=== PATIENT | female | born 1935 | race Caucasian/White ===

== ENCOUNTER 2018-04-04 14:09 | Day surgery (SDC) | payer BC ==
[2018-04-04] MEDS ORDERED: TRIAMCINOLONE ACETONIDE 200 MG/5 ML MDV IM ONE (15:02)
[2018-04-04] MEDS ORDERED: LIDOCAINE 1% 300 MG/30 ML SDV ONE (15:23)
[2018-04-04] MEDS ORDERED: IOPAMIDOL (ISOVUE-M 300) 15 ML VIAL ONE (15:23)
== END 2018-04-04 16:40 | disposition home or self-care (01) ==
LOC: FIMAGING 14:09
PROVIDERS: ATTEND Physical Medicine & Rehabilitation
PROC: 3E0R33Z Introduction of Anti-inflammatory into Spinal Canal, Percutaneous Approach (ICD-10-PCS; principal; 2018-04-04)
DX: M48.061 Spinal stenosis, lumbar region without neurogenic claudication (principal); M99.73 Connective tissue and disc stenosis of intervertebral foramina of lumbar region
CPT/HCPCS: J3301; Q9967

== ENCOUNTER 2018-04-18 19:52 | Inpatient (IN) | payer OTHER, BC ==
[2018-04-18 20:27] LABS: PLATELET COUNT 236 10^3/uL (150-400)
[2018-04-18] MEDS ORDERED: NS 500 ML IV ONE (20:31)
[2018-04-18 20:53] LABS: INR 1.09 (0.83-1.16); PROTIME(PATIENT) 14.3 SEC (12.0-15.0)
--- NOTE | 2018-04-18 21:47 | EDPHY ---
H & P Time Seen by Provider: 04/18/18 20:33 HPI/ROS: HPI Frequent falls. Word-finding difficulty. 82-year-old female by private vehicle with her . Her reports that the patient was asking him questions at 4:00 p.m. this evening and had sudden onset word finding difficulty. He also reports that she has had at least 4 falls over the last month. She reports that she still seems somewhat confused but her expressive aphasia has improved and she in his words she is close to baseline in terms of speech and cognition. She denies headache. No neck pain. She denies loss of sensation or weakness in her extremities. Her reports that she has a couple of cocktails and night to help her sleep. Her does report that she has not been drinking prior to her onset of word-finding difficulty. ROS: Constitutional: No fever, no chills. As above. Eyes: No discharge. No changes in vision. ENT: No sore throat. No nasal congestion or rhinorrhea. Respiratory: No cough. No shortness of breath. Cardiac: No chest pain, no palpitations. Gastrointestinal: No abdominal pain, no vomiting, no diarrhea. Genitourinary: No hematuria. No dysuria or increased frequency with urination. Musculoskeletal: No back pain. No neck pain. No myalgias or arthralgias. Skin: No rashes. Neurological: No headache. No focal weakness or altered sensation. Past medical history: Atherosclerotic disease, coronary artery disease, multiple stents, pulmonary hypertension, ulcerative colitis. Social history: Nonsmoker. Lives with her private residence. As 2-3 cocktails per day. Physical Exam: General Appearance: Alert, no distress. This patient is responding to questions appropriately and in full sentences. This patient appears well- hydrated and well-nourished. Head: Normocephalic atraumatic. Face: Facial bones are stable on palpation. Eyes: Pupils equal and round and reactive to light, no pallor or injection. No lid erythema or edema. ENT, Mouth: Mucous membranes moist. Dentition is intact. No malocclusion of the jaw. No tongue lacerations or abrasions. Pharynx is clear. The bilateral nasal canals are clear. No septal hematoma. Respiratory: There are no retractions, lungs are clear to auscultation with good air movement bilaterally. Chest wall is stable to AP and lateral palpation. Cardiovascular: Regular rate and rhythm. No murmur. Gastrointestinal: Abdomen is soft and nontender, no masses, bowel sounds normal. Neurological: Motor sensory function is intact. Cranial nerves are normal. Cerebellar function intact. Skin: Warm and dry, no rashes. Patchy ecchymosis over the right dorsal forearm with a skin tear which has Tegaderm over it right lateral distal arm. Musculoskeletal: Neck is supple and nontender. No pain on flexion of her neck. The trachea is midline. No midline cervical, thoracic, lumbar or sacral tenderness on palpation. No flank tenderness on palpation. Extremities are symmetrical, full range of motion. All joints in the bilateral upper and bilateral lower extremities range without pain or impingement. No tenderness on palpation of the long bones in the bilateral upper and bilateral lower extremities. No pain on axial compression of her joints in her bilateral upper and bilateral lower extremities. Psychiatric: No agitation. No depression. Database: EKG: EKG time is 9:55 p.m.; EKG shows a narrow complex normal sinus rhythm with a ventricular rate of 74. Probable left atrial enlargement. The NE, QRS, QT intervals are within normal limits. T-wave inversion noted in lead V2. There are otherwise no ST-T wave changes indicative of ischemic or injury pattern. No evidence of right heart strain. Interpreted by me. Imaging: CT head without contrast: Negative. Results were discussed with staff radiologist Dr. Faheem Hammond. MRI brain without contrast: Carotid artery Doppler ultrasounds: Procedures: Emergency department course: Triage vital signs reviewed. Patient borderline febrile at 37.8. Vital signs are otherwise normal. Patient sent for noncontrast CT of head shortly after my evaluation. 10:00 p.m., patient re-evaluated. Repeat neurologic Assessment is nonfocal and unchanged from above. MRI brain without contrast and carotid artery Dopplers pending. Plan for admission to the hospitalist service and Neurology consultation in the morning discussed with the patient and her . They are in agreement. Hospitalist paged. 10:05 p.m., spoke with [facility]. Case discussed with them. They agree with above imaging and management plan. 10:15 p.m., patient taken for MRI and Doppler ultrasounds pending. Repeat neurologic Assessment again unchanged from above. Spoke with on-call hospitalist, Dr. Centeno. Case discussed in detail. The patient has a leukocytosis and is borderline febrile as well. Urinalysis has been ordered but not obtained. I feel that meningitis, encephalitis or unlikely. Results of MRI, urinalysis and ultrasound will be followed up on by the hospitalist service. Hospitalist service will consult with Neurology in the morning regarding this patient. The patient's remaining emergency department course under my care has been uneventful. She was admitted in stable condition to the hospitalist service. Differential Diagnosis: The differential diagnosis on this patient includes but is not limited to TIA, alcohol intoxication, dementia, urinary tract infection. Meningitis, encephalitis unlikely. This represents a partial list of diagnoses considered. These considerations are based on history, physical exam, past history, reassessment and diagnostic testing. Smoking Status: Never smoked Constitutional: Initial Vital Signs Temperature (C) 37.8 C 04/18/18 19:56 Heart Rate 90 04/18/18 19:56 Respiratory Rate 18 04/18/18 19:56 Blood Pressure 120/64 04/18/18 19:56 O2 Sat (%) 98 04/18/18 19:56 O2 Delivery Mode Nasal Cannula O2 (L/minute) 2 Allergies/Adverse Reactions: tapentadol HCl [From Nucynta] Allergy (Intermediate, Verified 04/18/18 19:58) hallucinations dicloxacillin Allergy (Unknown, Verified 04/18/18 19:58) Unknown nitrofurantoin macrocrystalline [From Macrodantin] Allergy (Unknown, Verified 19:58) Penicillins Allergy (Unknown, Verified 04/18/18 19:58) Sulfa (Sulfonamide Antibiotics) Allergy (Unknown, Verified 04/18/18 19:58) tetracycline [Tetracycline] Allergy (Unknown, Verified 04/18/18 19:58) abi inhibitors Allergy (Unknown, Uncoded 04/18/18 19:58) sinobac Allergy (Unknown, Uncoded 04/18/18 19:58) Home Medications: Medication Instructions Recorded DULoxetine [Cymbalta 60 MG (RX)] 60 mg PO DAILY 11/25/11 FLUoxetine [Prozac 20 MG (RX)] 20 mg PO DAILY 11/25/11 Losartan Potassium 100 mg PO DAILY 11/25/11 clonIDINE [Catapres (RX)] 0.1 mg PO DAILY 11/25/11 traZODone [traZODONE (RX)] 100 mg PO HS 11/28/11 Furosemide [Lasix 20 MG (*)] 20 mg PO BID 04/01/18 Albuterol [Proventil Inhaler HFA 1 - 2 puffs IH DAILY PRN 04/19/18 (*)] Albuterol [Proventil Neb] 3 ml IH Q6HRS PRN 04/19/18 Cholecalciferol Vit D3 [Vitamin D3 1,000 units PO DAILY 04/19/18 (*)] Diclofenac Sodium 1% [Voltaren Gel 1 margo TP DAILY PRN 04/19/18 (*)] Fluticasone/Vilanterol [Breo 1 each IH DAILY 04/19/18 Ellipta 100-25 Mcg INH] Herbals/Supplements -Info Only 1 ea PO DAILY 04/19/18 Levothyroxine [Synthroid 88 mcg 88 mcg PO DAILY06 04/19/18 (*)] Montelukast Sodium [Singulair 10 10 mg PO DAILY@1800 04/19/18 mg (*)] Naproxen [Naprosyn] 250 mg PO DAILY PRN 04/19/18 Nebivolol HCl [Bystolic] 20 mg PO DAILY 04/19/18 Ranolazine [RANEXA 500mg (RX)] 500 mg PO BID 04/19/18 clonIDINE [Catapres (*)] 0.2 mg PO HS 04/19/18 hydrALAZINE [Apresoline 50 mg (*)] 50 mg PO BID 04/19/18 Medical Decision Making - Data Points Laboratory Results: Laboratory Results 04/19/18 05:10 04/19/18 05:10 Microbiology Results: MICROBIOLOGY 04/18/18 22:15 Urine,Clean Catch Urine Culture - Preliminary Escherichia Coli Escherichia Coli#2 Medications Given: Cholecalciferol (Vitamin D) 1,000 units PO DAILY [facility] Stop: 10/17/18 08:59 Last Admin: 04/20/18 09:32 Dose: 1,000 units Clonidine (Catapres) 0.1 mg PO DAILY [facility] Stop: 10/17/18 08:59 Last Admin: 04/20/18 09:33 Dose: 0.1 mg Clonidine (Catapres) 0.1 mg PO HS [facility] Stop: 10/16/18 20:59 Last Admin: 04/20/18 20:01 Dose: 0.1 mg Duloxetine HCl (Cymbalta) 60 mg PO DAILY [facility] Stop: 10/16/18 13:44 Last Admin: 04/20/18 09:32 Dose: 60 mg Fluoxetine HCl (Prozac) 20 mg PO DAILY [facility] Stop: 10/16/18 13:44 Last Admin: 04/20/18 09:32 Dose: 20 mg Ceftriaxone Sodium/Dextrose (Rocephin 1 Gm (Premix)) 50 mls @ 100 mls/hr IV HS FELIPE PRN Reason: Protocol Stop: 05/18/18 23:29 Last Admin: 04/20/18 20:01 Dose: 50 mls Levothyroxine Sodium (Synthroid) 88 mcg PO DAILY06 [facility] Stop: 10/16/18 13:44 Last Admin: 04/20/18 06:03 Dose: 88 mcg Melatonin (Melatonin) 3 mg PO HS [facility] Stop: 10/16/18 20:59 Last Admin: 04/20/18 20:01 Dose: 3 mg Montelukast Sodium (Singulair) 10 mg PO DAILY@1800 [facility] Stop: 10/16/18 17:59 Last Admin: 04/20/18 18:13 Dose: 10 mg Ranolazine (Ranexa) 500 mg PO BID [facility] Stop: 10/16/18 20:59 Last Admin: 04/20/18 20:01 Dose: 500 mg Temazepam (Restoril) 15 mg PO HS PRN PRN Reason: Sleep/Insomnia Stop: 10/16/18 14:17 Last Admin: 04/20/18 20:00 Dose: 15 mg Discontinued Medications Clonidine (Catapres) 0.2 mg PO HS FELIPE Stop: 10/16/18 20:59 Last Admin: 04/19/18 20:15 Dose: 0.2 mg Sodium Chloride (Ns) 500 mls @ 0 mls/hr IV ONCE ONE; Wide Open PRN Reason: Protocol Stop: 04/18/18 20:32 Last Admin: 04/18/18 20:47 Dose: 500 mls Ceftriaxone Sodium/Dextrose (Rocephin 1 Gm (Premix)) 50 mls @ 100 mls/hr IV DAILY [facility]ELIPE PRN Reason: Protocol Stop: 05/18/18 23:29 Last Admin: 04/19/18 10:36 Dose: Not Given Losartan Potassium (Cozaar) 100 mg PO DAILY [facility]EL[facility] Stop: 10/17/18 08:59 Last Admin: 04/20/18 09:32 Dose: 100 mg Nebivolol (Bystolic) 20 mg PO DAILY [facility]ELIPE Stop: 10/17/18 08:59 Last Admin: 04/20/18 09:32 Dose: 20 mg Trazodone HCl (Trazodone) 50 - 100 mg PO HS PRN PRN Reason: Sleep/Insomnia Stop: 10/16/18 00:48 Last Admin: 04/19/18 01:20 Dose: 100 mg Point of Care Test Results: Chemistry 04/18/18 20:14 POC Troponin I 0.00 ng/mL ng/mL (0.00-0.08) Departure - Departure Disposition: [facility] Acute Clinical Impression: Frequent falls, Leukocytosis, Expressive aphasia, Transient expressive aphasia
--- NOTE | 2018-04-18 22:11 | CPEKG ---
Test Reason : OPEN Blood Pressure : / mmHG Vent. Rate : 074 BPM Atrial Rate : 074 BPM P-R Int : 140 ms QRS Dur : 081 ms QT Int : 424 ms P-R-T Axes : 068 025 065 degrees QTc Int : 471 ms Sinus rhythm Probable left atrial enlargement Nonspecific T abnrm, anterolateral leads Confirmed by Gerry Dobson ([id number]) on 04/18/2018 10:10:37 PM Referred By: Confirmed By:Gerry Dobson
[2018-04-18] MEDS ORDERED: ACETAMINOPHEN 325 MG TAB PO PRN (23:01)
[2018-04-18] MEDS ORDERED: ONDANSETRON DISINTEGRATING 4 MG TAB PO PRN (23:01)
[2018-04-18] MEDS ORDERED: ONDANSETRON 4 MG/2 ML VIAL IVP PRN (23:01)
[2018-04-18] MEDS ORDERED: cefTRIAXone 1 GM/DEXTROSE 1 GM/50 ML BAG IV ONE (23:20)
--- NOTE | 2018-04-18 23:35 | CPEKG ---
Test Reason : OPEN Blood Pressure : / mmHG Vent. Rate : 080 BPM Atrial Rate : 080 BPM P-R Int : 138 ms QRS Dur : 075 ms QT Int : 391 ms P-R-T Axes : 055 016 067 degrees QTc Int : 451 ms Sinus rhythm Confirmed by Parker Poon ([id number]) on 04/18/2018 11:34:59 PM Referred By: Confirmed By:Parker Poon
[2018-04-19] MEDS ORDERED: traZODone 50 MG TAB PO PRN (00:49)
--- NOTE | 2018-04-19 02:00 | PDGENHP ---
History and Physical - Chief Complaint Word finding difficulty - History of Present Illness 82 yo F w/ hx of HTN, CAD, and pHTN presents with word finding difficulty. The patient was brought in by her since she has been displaying mild confusion and word finding difficulty over the last 2 days. The patient denies numbness, weakness, or other neurologic symptoms. As a result of her word finding difficulty a TIA work-up was started and she is being admitted for the completion of this. Her NIHSS is 0 at the time of my evaluation. Upon further discussion, she tells me she has also been experiencing foul smelling urine and urinary frequency. She has had several falls lately but denies LOC or serious injury. Her BAL was 41 on admission. Case discussed with ED physician Dr. Poon; records reviewed in EMR. History Information - Allergies/Home Medication List Allergies/Adverse Reactions: tapentadol HCl [From Nucynta] Allergy (Intermediate, Verified 04/18/18 19:58) hallucinations dicloxacillin Allergy (Unknown, Verified 04/18/18 19:58) Unknown nitrofurantoin macrocrystalline [From Macrodantin] Allergy (Unknown, Verified 19:58) Penicillins Allergy (Unknown, Verified 04/18/18 19:58) Sulfa (Sulfonamide Antibiotics) Allergy (Unknown, Verified 04/18/18 19:58) tetracycline [Tetracycline] Allergy (Unknown, Verified 04/18/18 19:58) abi inhibitors Allergy (Unknown, Uncoded 04/18/18 19:58) sinobac Allergy (Unknown, Uncoded 04/18/18 19:58) Home Medications: DULoxetine [Cymbalta 60 MG (RX)] 60 mg PO DAILY 11/25/11 [Last Taken 11/28/11] FLUoxetine [Prozac 20 MG (RX)] 20 mg PO DAILY 11/25/11 [Last Taken 11/28/11] Levothyroxine [Synthroid 112 mcg (RX)] 112 mcg PO DAILY 11/25/11 [Last Taken 29/07] Losartan Potassium 100 mg PO DAILY 11/25/11 [Last Taken 11/28/11] clonIDINE [Catapres (RX)] 0.1 mg PO BID 11/25/11 [Last Taken 11/28/11] Aspirin EC [Aspirin EC (OTC)] 81 mg PO DAILY 11/28/11 [Last Taken 11/28/11] Simvastatin [Zocor 10 mg (RX)] 10 mg PO BID 11/28/11 [Last Taken 11/28/11 08:00] traZODone [traZODONE (RX)] 100 mg PO HS 11/28/11 [Last Taken 11/27/11] BIOTIN 04/01/18 [Last Taken Unknown] Furosemide 04/01/18 [Last Taken Unknown] I have personally reviewed and updated: family history, medical history - Past Medical History coronary artery disease, hypertension Additional medical history: Pulmonary hypertension - Surgical History Reports: coronary stent - Family History Additional family history: Asked, denies - Social History Smoking Status: Never smoked Review of Systems Review of Systems: ROS: 10pt was reviewed & negative except for what was stated in HPI & below Physical Exam Physical Exam: Temp Pulse Resp BP Pulse Ox 37.4 C 70 18 139/58 H 96 04/19/18 00:01 04/19/18 00:01 04/19/18 00:01 04/19/18 00:01 04/19/18 00:01 O2 (L/minute) 2 Constitutional: no apparent distress, not in pain Eyes: PERRL, EOMI Ears, Nose, Mouth, Throat: moist mucous membranes, no oral mucosal ulcers Cardiovascular: regular rate and rhythym, systolic murmur Respiratory: no respiratory distress, clear to auscultation Gastrointestinal: normoactive bowel sounds, soft, non-tender abdomen Skin: warm, normal color Musculoskeletal: full muscle strength, no muscle tenderness Neurologic: AAOx3, sensation intact bilaterally, CN II-XII Intact, No weakness, No numbness, No facial droop Psychiatric: interacting appropriately, not anxious Lab Data & Imaging Review 04/18/18 20:10 04/18/18 20:10 WBC 23.01 10^3/uL (3.80-9.50) H 04/18/18 20:10 RBC 3.71 10^6/uL (4.18-5.33) L 04/18/18 20:10 Hgb 11.8 g/dL (12.6-16.3) L 04/18/18 20:10 Hct 35.4 % (38.0-47.0) L 04/18/18 20:10 MCV 95.4 fL (81.5-99.8) 04/18/18 20:10 MCH 31.8 pg (27.9-34.1) 04/18/18 20:10 MCHC 33.3 g/dL (32.4-36.7) 04/18/18 20:10 RDW 13.3 % (11.5-15.2) 04/18/18 20:10 Plt Count 236 10^3/uL (150-400) 04/18/18 20:10 MPV 9.4 fL (8.7-11.7) 04/18/18 20:10 Neut % (Auto) 81.9 % (39.3-74.2) H 04/18/18 20:10 Lymph % (Auto) 6.1 % (15.0-45.0) L 04/18/18 20:10 [place] % (Auto) 10.8 % (4.5-13.0) 04/18/18 20:10 Eos % (Auto) 0.1 % (0.6-7.6) L 04/18/18 20:10 Baso % (Auto) 0.2 % (0.3-1.7) L 04/18/18 20:10 Nucleat RBC Rel Count 0.0 % (0.0-0.2) 04/18/18 20:10 Absolute Neuts (auto) 18.85 10^3/uL (1.70-6.50) H 04/18/18 20:10 Absolute Lymphs (auto) 1.40 10^3/uL (1.00-3.00) 04/18/18 20:10 Absolute Monos (auto) 2.49 10^3/uL (0.30-0.80) H 04/18/18 20:10 Absolute Eos (auto) 0.02 10^3/uL (0.03-0.40) L 04/18/18 20:10 Absolute Basos (auto) 0.05 10^3/uL (0.02-0.10) 04/18/18 20:10 Absolute Nucleated RBC 0.00 10^3/uL (0-0.01) 04/18/18 20:10 Immature Gran % 0.9 % (0.0-1.1) 04/18/18 20:10 Immature Gran # 0.21 10^3/uL (0.00-0.10) H 04/18/18 20:10 RBC/WBC/PLT Morphology TNP 04/18/18 20:10 Platelet Estimate TNP 04/18/18 20:10 PT 14.3 SEC (12.0-15.0) 04/18/18 20:10 INR 1.09 (0.83-1.16) 04/18/18 20:10 APTT 33.5 SEC (23.0-38.0) 04/18/18 20:10 Sodium 130 mEq/L (135-145) L 04/18/18 20:10 Potassium 4.2 mEq/L (3.3-5.0) 04/18/18 20:10 Chloride 98 mEq/L (97-110) 04/18/18 20:10 Carbon Dioxide 23 mEq/l (22-31) 04/18/18 20:10 Anion Gap 9 mEq/L (8-16) 04/18/18 20:10 BUN 21 mg/dL (7-23) 04/18/18 20:10 Creatinine 1.2 mg/dL (0.6-1.0) H 04/18/18 20:10 Estimated GFR 43 04/18/18 20:10 Glucose 156 mg/dL (70-100) H 04/18/18 20:10 Calcium 8.8 mg/dL (8.5-10.4) 04/18/18 20:10 POC Troponin I 0.00 ng/mL (0.00-0.08) 04/18/18 20:14 TSH 0.650 uIU/mL (0.465-4.680) 04/18/18 21:42 Urine Color YELLOW 04/18/18 22:15 Urine Appearance MODERATELY TURBID 04/18/18 22:15 Urine pH 6.0 (5.0-7.5) 04/18/18 22:15 Ur Specific [place] 1.006 (1.002-1.030) 04/18/18 22:15 Urine Protein 1+ (NEGATIVE) H 04/18/18 22:15 Urine Ketones NEGATIVE (NEGATIVE) 04/18/18 22:15 Urine Blood 1+ (NEGATIVE) H 04/18/18 22:15 Urine Nitrate NEGATIVE (NEGATIVE) 04/18/18 22:15 Urine Bilirubin NEGATIVE (NEGATIVE) 04/18/18 22:15 Urine Urobilinogen 4.0 EU (0.2-1.0) H 04/18/18 22:15 Ur Leukocyte Esterase 3+ (NEGATIVE) H 04/18/18 22:15 Urine RBC 10-15 /hpf (0-3) H 04/18/18 22:15 Urine WBC 50-182 /hpf (0-3) H 04/18/18 22:15 Ur Epithelial Cells TRACE /lpf (NONE-1+) 04/18/18 22:15 Urine Bacteria 3+ /hpf (NONE SEEN) H 04/18/18 22:15 Urine Mucus TRACE /lpf (NONE-1+) 04/18/18 22:15 Urine Glucose NEGATIVE (NEGATIVE) 04/18/18 22:15 Ethyl Alcohol 41 mg/dL (0-10) H 04/18/18 20:10 Imaging Review: Imaging Impressions Chest X-Ray 04/18/18 20:32 Impression: No evidence for acute cardiopulmonary abnormality. Head CT 04/18/18 20:32 Impression: No evidence for acute intracranial abnormality. Mild periventricular and deep hemispheric white matter change that can be seen with small vessel ischemic disease. Generalized cerebral atrophy. Brain MRI 04/18/18 21:33 Impression: Mild periventricular and deep hemispheric white matter changes seen bilateral. This is nonspecific and can be seen with small vessel ischemic disease. No evidence for acute infarct. Generalized cerebral atrophy. Foci of hemosiderin in the right cerebellum which could be from prior trauma or cavernous angioma. Results called and discussed with Dr. Moreno Herrera at 04/18/2018 23:02. Carotid Doppler Study 04/18/18 21:34 Impression: 1. No evidence of flow-limiting carotid stenosis. 2. Velocities correlate to less than 50% diameter stenosis of the origin of the right internal carotid artery. 3. Velocities correlate to less than 50% diameter stenosis of the origin of the left internal carotid artery. 4. Bilateral vertebral arteries are patent with antegrade flow. Measurement of carotid stenosis is based on velocity parameters that correlate the residual internal carotid diameter with [place] Symptomatic Carotid Endarterectomy Trial (NASCET) based stenosis levels. Assessment & Plan Assessment: 82 yo F presents with word finding difficulty due to TIA vs. UTI. Plan: 1. Word finding difficulty - Symptoms presents for 2 days; initially this was considered a possible TIA. She was admitted for completion of this work up. Patient is symptom free at this time. Thus far CTH, MRI, and carotid dopplers have all been reassuring without acute or explanatory findings. She does have a UTI, which may explain her mild confusion and frequent falls. - Complete stroke work-up with TTE, A1c, lipids, neurology consult - Treat UTI as below - PT/OT/ASSOCIATE SCIENTIST evaluations 2. UTI - Infectious UA + foul smelling urine and urinary frequency. WBC of 23, 000. - CTX 1 g qD - Urine culture pending 3. Falls - I suspect this is likely multifactorial from UTI, deconditioning, and ETOH use. - Treat UTI as above - Editorial Specialist limiting ETOH - PT/OT evaluations 4. CKD, Stage III - Creatinine 1.2 on admission, which is stable from previous values. - Monitor BMP - Avoid nephrotoxic agents, renally dose medications 5. Hyponatremia - Mild, 130 on admission. This is likely related to dehydration and infection. - S/p 500 mL NS - Recheck BMP in the morning 6. Hx CAD - s/p PCI, no acute symptoms. 7. HTN - Continue home medications pending reconciliation. Diet - Regular pending RN swallow screen Code - Full Ppx - SCDs Dispo - Admit under observation status
[2018-04-19 05:59] LABS: PLATELET COUNT 189 10^3/uL (150-400)
--- NOTE | 2018-04-19 11:11 | ASMTCASEMG ---
Living Arrangements What is your living Answers: With Spouse arrangement? Who do you live with? Type Of Residence What kind of residence do Answers: House you live in? Discharge Plan Comments Coordination Status Comments Notes: Patient is an 82yo female who was admitted for word finding difficulty, UTI, falls due to deconditioning and ETOH use, CKD, stage III, and hyponatremia. PATTERN MOLDER has been ordered. D/C plan TBD. CM will follow. Date Signed: 04/19/2018 11:10 AM Electronically Signed By:Nahomi Lloyd LCSW
--- NOTE | 2018-04-19 11:26 | NEUROPROG ---
Assessment: [id number] - Neurology Consult: - CC: Word Finding Difficulties - HPI: Pt admitted for a sense of mild confusion, frequent falls, and word finding difficulty that began on 04/16/18. NIH SS reported at 0 at time of admission on . She was noted to have an elevated alcohol level, elevated creatinine, low sodium, and an elevated WBC with a UTI. I initially saw her on 04/19/18. Her neurologic exam on 04/19/18 was unremarkable. She reported all symptoms had resolved. I felt she likely had a metabolic encephalopathy from her UTI, low sodium, elevated creatinine, and alcohol use. I did not think she had a TIA or stroke given 2 days of symptoms and a brain MRI showing no stroke. - PMHx: HTN, CAD with stent, pHTN - SHx: no tobacco FHx: NC - ROS: Pt denied acute fever, total vision loss, active severe chest pain, respiratory failure, total body severe rash, total bowel/bladder incontinence, psychosis, active seizures, or active bleeding - O: VS reviewed General: Alert Eyes: Fundoscopic exam not able to visualize optic disks CV: Heart RRR, no murmur, no carotid bruit Lungs: Clear to auscultation bilaterally, no rhonchi or rales Neuro: - Mental: . Oriented x person/place/date . concentration appears normal . speech fluency/comprehension normal . memory appears normal . fund of knowledge appear intact - Cranial Nerves: . II: PERRL, VFFTC . III/IV/: EOMI, no nystagmus, normal smooth pursuits, no Ptosis . V: facial sensation intact to LT . VII: face symmetric to eye closure and smile . VIII: hearing intact to conversation . IX/X: uvula raises symmetrically . XI: SCM 5/5 B/L strength . XII: tongue protrudes midline w/nl strength - Motor: . Tone: normal tone in all 4 extremity . Strength: no pronator drift, strength 5/5 throughout (B/L delt, bic, tri, hand educational sign language interpreter, hf/he, df/pf) - Reflexes: B/L bic 2/4 - Sensory: all 4 extremity intact to light touch - Coord: [id number] wnl, EDGARD wnl, kejv-er-uqjq wnl - Gait: deferred - Labs: 04/18/18- CBC WBC 23H Hct 35.4L, Coags wnl, Chem Na 130L Cr 1.2H Gluc 156H, TSH wnl, Ethyl alcohol 41H 04/19/18- LDL 72L - Rads: 04/18/18- Brain MRI w/o: Mild periventricular and deep hemispheric white matter changes seen bilateral. This is nonspecific and can be seen with small vessel ischemic disease. No evidence for acute infarct. Generalized cerebral atrophy. Foci of hemosiderin in the right cerebellum which could be from prior trauma or cavernous angioma. (I personally visualized the images on 04/19/18) - 04/18/18- Carotid U/S: no flow-limiting stenosis of carotids - Assessment: 1. Probable Toxic-metabolic Encephalopathy: Pt admitted for a sense of mild confusion, frequent falls, and word finding difficulty that began on 04/16/18. NIH SS reported at 0 at time of admission on 04/18/18. She was noted to have an elevated alcohol level, elevated creatinine, low sodium, and an elevated WBC with a UTI. I initially saw her on 04/19/18. Her neurologic exam on 04/19/18 was unremarkable. She reported all symptoms had resolved. I felt she likely had a metabolic encephalopathy from her UTI, low sodium, elevated creatinine, and alcohol use. I did not think she had a TIA or stroke given 2 days of symptoms and a brain MRI showing no stroke. - 2. Foci of hemosiderin in the right cerebellum which could be from prior trauma or cavernous angioma noted on brain MRI on 04/18/18: I dont think this is causing any problems currently but I do recommend avoiding alcohol and maintaining good blood pressure control to avoid falls and lower risk of brain hemorrhage. - Plan: - No further neurologic w/u needed at this time, neurology will sign off - Recommend alcohol cessation and good blood pressure control Objective: Vital Signs Temp Pulse Resp BP Pulse Ox 37.3 C 72 15 130/55 H 97 04/19/18 08:31 04/19/18 08:31 04/19/18 08:31 04/19/18 09:34 04/19/18 08:31 Laboratory Results 04/19/18 05:10 04/19/18 05:10 09/10/18 09/11/18 09/12/18 05:59 05:59 05:59 Intake Total 1000 Balance 1000 PT 14.3 SEC (12.0-15.0) 04/18/18 20:10 INR 1.09 (0.83-1.16) 04/18/18 20:10 Allergies/Adverse Reactions: tapentadol HCl [From Nucynta] Allergy (Intermediate, Verified 04/18/18 19:58) hallucinations dicloxacillin Allergy (Unknown, Verified 04/18/18 19:58) Unknown nitrofurantoin macrocrystalline [From Macrodantin] Allergy (Unknown, Verified 19:58) Penicillins Allergy (Unknown, Verified 04/18/18 19:58) Sulfa (Sulfonamide Antibiotics) Allergy (Unknown, Verified 04/18/18 19:58) tetracycline [Tetracycline] Allergy (Unknown, Verified 04/18/18 19:58) abi inhibitors Allergy (Unknown, Uncoded 04/18/18 19:58) sinobac Allergy (Unknown, Uncoded 04/18/18 19:58)
[2018-04-19] MEDS ORDERED: DICLOFENAC SODIUM 1% 100 GM GEL TP PRN (13:31)
[2018-04-19] MEDS ORDERED: ALBUTEROL 3 ML DEYVIAL IH PRN (13:31)
[2018-04-19] MEDS ORDERED: ALBUTEROL 60 PUFFS/8 GM MDI IH PRN (13:31)
--- NOTE | 2018-04-19 13:36 | HOSPPROG ---
Hospitalist Progress Note Assessment/Plan: 82 yo F presents with word finding difficulty due to TIA vs. UTI. Today is my first encounter with the patient, chart reviewed. *word finding difficulty, probable toxic metabolic encephalopathy -multifactorial, UTI, alcohol use, medications, low sodium -Brain MRI - nothing acute, Mild periventricular and deep hemispheric white matter changes seen bilateral. Foci of hemosiderin in the right cerebellum which could be from prior trauma or cavernous angioma. - Carotid U/S shows no flow-limiting stenosis of carotids *leukocytosis -multifactorial, dehydration, uti *uti -Ceftriaxone -awaiting urine cx and sensitivities *CKD, stage III *mild hyponatremia -likely due to hypovolemia, hold diuretic *HTN -resume bp meds -bp is bit low this afternoon, will place parameters as when to hold meds *falls -suspect this is r/t use of alcohol to help her sleep,along w trazodone and bp meds possibly causing hypotension -she has multiple bruises on her right arm, right knee area *insomnia -trial of melatonin and then Restoril if ineffective *plan: she will require another midnight stay for further evaluation from PT, OT , ST, she has significant bruising. She also has a high wbc, will recheck labs in a.m. Subjective: Charo has some right shoulder pain and is concerned about not being able to sleep. Objective: Vital Signs Temp Pulse Resp BP Pulse Ox 37.1 C 72 17 109/52 L 96 04/19/18 11:38 04/19/18 11:38 04/19/18 11:38 04/19/18 11:38 04/19/18 11:38 Laboratory Results 04/19/18 05:10 04/19/18 05:10 04/18/18 04/19/18 04/20/18 05:59 05:59 05:59 Intake Total 1000 Balance 1000 PT 14.3 SEC (12.0-15.0) 04/18/18 20:10 INR 1.09 (0.83-1.16) 04/18/18 20:10 - Physical Exam Constitutional: not in pain Eyes: PERRL Ears, Nose, Mouth, Throat: hearing normal Cardiovascular: regular rate and rhythym Respiratory: no respiratory distress Gastrointestinal: normoactive bowel sounds Skin: warm, other (bruises to right knee area, no significant swelling, bruising on her right forearm area) Musculoskeletal: other (c/o r shoulder pain, can abduct, adduct and elevate right arm without diff.) Neurologic: AAOx3, sensation intact bilaterally Psychiatric: interacting appropriately ICD10 Worksheet Patient Problems: Problems Problem Status Onset Expressive aphasia Acute Frequent falls Acute Leukocytosis Acute CAD - Coronary arteriosclerosis Active History of placement of stent for coronary artery disease Active
--- NOTE | 2018-04-19 14:19 | ECHO ---
[email or web address] [address] Main: [phone] Fax: Transthoracic Echocardiogram Name: RANCHO MR#: [id number] CLARIBEL Study Date: 04/19/2018 Study Time: 01:13 PM Date of : 1935 Age: 82 year(s) Height: 170.2 cm (67 in.) Weight: 72.58 kg (160 lb.) BSA: 1.84 m2 Gender: Female Examination: Echo with Agitated Saline Indication: ?TIA Image Quality: Adequate Contrast: I.V. dose of agitated saline Requested by: Kevin Winter BP: 109 mmHg/52 mmHg Heart Rate: Rhythm: Indication: ?TIA Procedure Staff Job Site Superintendent: Feli Ballard [facility] Reading Physician: Marciano Sanches MD Requesting Provider: Conclusions: Normal global systolic LV function. EF is 67 %. An agitated saline study was performed and was negative for intracardiac shunting. Trivial mitral valve regurgitation. Moderate aortic valve regurgitation is present. Measurements: Chambers Valvular Assessment AV/MV Valvular Assessment TV/PV Normal Normal Normal Name Value Range Name Value Range Name Value Range Ao Lilian (MM): 3.5 cm (2.2 cm-3.7 AV Vmax: 2.07 m/s (1 m/s-1.7 PV Vmax: 0.93 m/s (0.6 m/s-0.9 cm) m/s) m/s) IVSd (2D): 1.1 cm (0.6 cm-1.1 AV maxP mmHg ( - ) PV PGmax: 3 mmHg ( - ) cm) AV meanP mmHg ( - ) LVDd (2D): 4.1 cm (3.9 cm-5.3 LVOT Vmax: 1.15 m/s (0.7 m/s-1.1 cm) m/s) LVDs (2D): 2.5 cm (2.1 cm-4 ALEXANDER (Vmax): 1.9 cm2 ( - ) cm) ALEXANDER (VTI): 2.1 cm ( - ) LVPWd (2D): 0.8 cm ( - ) AR (PHT): 448 ms ( - ) LVOTd 2.1 cm 2.1 cm mm MV E Vmax: 0.72 m/s ( - ) LVEF (BP): 67 % (>=55 %) MV A Vmax: 0.86 m/s ( - ) RVDd(2D): 3.1 cm (1.9 cm-3.8 MV E/A: 0.84 ( - ) cmmm) Continued Measurements: Chambers Valvular Assessment AV/MV Name Value Name Value LADs Lon.9 cm MV DecTime: 232 m/s Patient: RANCHO SANFORD Study Date: 04/19/2018 Page 1 of 2 01:13 PM LA Area: 19.4 cm2 MV E/E' Septal: 14.00 LA Volume: 63 ml MV E/E' Lateral: 10.90 LA Volume Index: 34.2 ml/m2 AR Vmax: 3.86 cm/s RA Area: 12.8 cm2 Additional Vessels Name Value Ao Ascendin.1 cm Findings: Left Ventricle: Normal size left ventricle. There is a sigmoid shaped septum is present, which is a normal finding in the elderly. . Normal global systolic LV function. EF is 67 %. No regional wall motion abnormality. Diastolic function is indeterminate. Right Ventricle: Normal size right ventricle. Normal RV function. Left Atrium: The left atirum is borderline dilated. An agitated saline study was performed and was negative for intracardiac shunting. Right Atrium: The right atrium is normal in size. Mitral Valve: There is mild thickening of the mitral valve leaflets. Trivial mitral valve regurgitation. No mitral stenosis is present. Aortic Valve: The aortic valve is tri-leaflet. Aortic sclerosis is present. Moderate aortic valve regurgitation is present. No aortic valve stenosis is present. Tricuspid Valve: The tricuspid valve appears normal. There is no tricuspid valve regurgitation. Pulmonary artery pressure is not obtained due to inadequate TR jet. Pulmonic Valve: The pulmonic valve is normal in appearance. Mild pulmonic valve regurgitation is noted. Aorta: Normal size aortic root measuring 3.5 cm. Normal size ascending aorta measuring 3.1 cm. IVC: The IVC is normal sized. Pericardium: No pericardial effusion. (No Signature Object) Patient: RANCHO SANFORD Study Date: 04/19/2018 Page 2 of 2 01:13 PM [id number]
--- NOTE | 2018-04-19 14:59 | PDMN ---
Medical Necessity Medical necessity: MCG M300 UTI: 82 y/o w/ difficulty finding words, neuro consult, TIA/stroke not likely, pt has +UTI - dx w/ probable toxic metabolic encephalopathy, WBC 23, CKD stage 3, creat 1.2, Urine cx pending, hypovolemia, IV fluids given. Important to note pt has significant, multiple bruising to extremities, PT/OT/ST ordered to f/u. Pt requires another [place] stay for further evaluation, lab checks, IV antibx.Hx HTN, CAD. Switch to IP status per [employer] order 04/19/18 @ 1527.
[2018-04-19] MEDS: FLUoxetine 20 MG CAP PO SCH (16:40)
[2018-04-19] MEDS: DULoxetine 60 MG CAP PO SCH (16:40)
[2018-04-19] MEDS: LEVOTHYROXINE 88 MCG TAB PO SCH (16:40)
[2018-04-19] MEDS: MONTELUKAST SODIUM 10 MG TAB PO SCH (18:38)
[2018-04-19] MEDS: TEMAZEPAM 15 MG CAP PO PRN (20:15)
[2018-04-19] MEDS: MELATONIN 3 MG TAB PO SCH (20:15)
[2018-04-19] MEDS: RANOLAZINE 500 MG TAB.ER PO SCH (20:15)
[2018-04-20 05:23] LABS: PLATELET COUNT 214 10^3/uL (150-400)
[2018-04-20] MEDS: LEVOTHYROXINE 88 MCG TAB PO SCH (06:03)
[2018-04-20] MEDS ORDERED: NEBIVOLOL HCL 5 MG TAB PO SCH (09:00)
[2018-04-20] MEDS ORDERED: LOSARTAN POTASSIUM 50 MG TAB PO SCH (09:00)
[2018-04-20] MEDS: RANOLAZINE 500 MG TAB.ER PO SCH ×2 (09:32→20:01)
[2018-04-20] MEDS: DULoxetine 60 MG CAP PO SCH (09:32)
[2018-04-20] MEDS: FLUoxetine 20 MG CAP PO SCH (09:32)
[2018-04-20] MEDS: CHOLECALCIFEROL VIT D3 1,000 UNITS TAB PO SCH (09:32)
--- NOTE | 2018-04-20 16:13 | HOSPPROG ---
Hospitalist Progress Note Assessment/Plan: 82 yo F presents with word finding difficulty due to TIA vs. UTI. *word finding difficulty, probable toxic metabolic encephalopathy -resolved -multifactorial, UTI, alcohol use, medications, low sodium -Brain MRI - nothing acute -Carotid U/S shows no flow-limiting stenosis of carotids -appreciate the therapies seeing her *leukocytosis -improved *uti -Ceftriaxone -urine cx shows ecoli, sensitivities are pending *CKD, stage III *mild hyponatremia -resolved w holding diuretic -suspect she was very dehydrated *HTN -resume bp meds but have decreased doses due to some hypotension *falls -suspect this is r/t use of alcohol to help her sleep,along w trazodone and bp meds possibly causing hypotension -she has multiple bruises on her right arm, right knee area *insomnia -trial of melatonin and then Restoril if ineffective *plan: would recommend stopping trazodone on dc, she did well w melatonin and Restoril. Also, told her extra shots of alcohol won't help her sleep, it causes hyperglycemia and she agrees. PT is recommending SNF, will see how she is over next few days. Changes w blood pressure medications: decreased Clonidine to 0.1 mg q HS (was on 0.2 mg), decreased Bystolic 5 mg (was on 20 mg), decreased Cozaar to 50 mg ( had been on 100 mg) Subjective: Charo is feeling much better today, no complaints Objective: Vital Signs Temp Pulse Resp BP Pulse Ox 37.2 C 67 20 108/60 97 04/20/18 15:24 04/20/18 15:24 04/20/18 15:24 04/20/18 15:24 04/20/18 15:24 Laboratory Results 04/20/18 04:18 04/20/18 04:18 04/19/18 04/20/18 04/21/18 05:59 05:59 05:59 Intake Total 1400 Balance 1400 PT 14.3 SEC (12.0-15.0) 04/18/18 20:10 INR 1.09 (0.83-1.16) 04/18/18 20:10 - Physical Exam Constitutional: not in pain, chronically ill appearing Eyes: PERRL Ears, Nose, Mouth, Throat: hearing normal Cardiovascular: regular rate and rhythym Respiratory: no respiratory distress Gastrointestinal: normoactive bowel sounds Skin: warm, other (bruises to her r knee) Musculoskeletal: generalized weakness Neurologic: AAOx3 Psychiatric: interacting appropriately ICD10 Worksheet Patient Problems: Problems Problem Status Onset Expressive aphasia Acute Frequent falls Acute Leukocytosis Acute CAD - Coronary arteriosclerosis Active History of placement of stent for coronary artery disease Active
[2018-04-20] MEDS: MONTELUKAST SODIUM 10 MG TAB PO SCH (18:13)
--- NOTE | 2018-04-20 18:45 | ASMTCMCOM ---
CM Note CM Note Notes: Spoke w/pt and family re; dc poc. Pt admitted for UTI and confusion. She lives at home with her and uses O2 at baseline. PT recommends SNF but pt declines, she is however agreeable to homecare. List provided to family and they will let CM know choice. DC Plan: Home Care Date Signed: 04/20/2018 02:34 PM Electronically Signed By:Ирина Aguero RN
[2018-04-20] MEDS: TEMAZEPAM 15 MG CAP PO PRN (20:00)
[2018-04-20] MEDS: MELATONIN 3 MG TAB PO SCH (20:01)
[2018-04-21] MEDS: LEVOTHYROXINE 88 MCG TAB PO SCH (05:40)
[2018-04-21] MEDS: LOSARTAN POTASSIUM 50 MG TAB PO SCH (09:06)
[2018-04-21] MEDS: FLUoxetine 20 MG CAP PO SCH (09:06)
[2018-04-21] MEDS: CHOLECALCIFEROL VIT D3 1,000 UNITS TAB PO SCH (09:06)
[2018-04-21] MEDS: RANOLAZINE 500 MG TAB.ER PO SCH ×2 (09:07→22:23)
[2018-04-21] MEDS: NEBIVOLOL HCL 5 MG TAB PO SCH (09:07)
[2018-04-21] MEDS: DULoxetine 60 MG CAP PO SCH (09:07)
--- NOTE | 2018-04-21 11:38 | HOSPPROG ---
Hospitalist Progress Note Assessment/Plan: 82 yo F presents with word finding difficulty due to TIA vs. UTI. First encounter, chart reviewed. *word finding difficulty, probable toxic metabolic encephalopathy -resolved -multifactorial, UTI, alcohol use, medications, low sodium -Brain MRI - nothing acute -Carotid U/S shows no flow-limiting stenosis of carotids -appreciate the therapies seeing her *leukocytosis -improved *uti -Ceftriaxone -urine cx shows ecoli, sensitivities are pending *CKD, stage III *mild hyponatremia -resolved w holding diuretic -suspect she was very dehydrated *HTN -resume bp meds but have decreased doses due to some hypotension *falls -suspect this is r/t use of alcohol to help her sleep,along w trazodone and bp meds possibly causing hypotension -she has multiple bruises on her right arm, right knee area *insomnia -trial of melatonin and then Restoril if ineffective *plan: would recommend stopping trazodone on dc, she did well w melatonin and Restoril. Also, she was told that extra shots of alcohol won't help her sleep, it causes hyperglycemia and she agrees. PT is recommending SNF, will DCin am to SNF if doing well. Changes w blood pressure medications: decreased Clonidine to 0.1 mg q HS (was on 0.2 mg), decreased Bystolic 5 mg (was on 20 mg), decreased Cozaar to 50 mg ( had been on 100 mg) Subjective: Feeling well. No specific issues. Feeling weak. Objective: Vital Signs Temp Pulse Resp BP Pulse Ox 36.9 C 64 20 124/62 H 99 04/21/18 11:29 04/21/18 11:29 04/21/18 11:29 04/21/18 11:29 04/21/18 11:29 Laboratory Results 04/20/18 04:18 04/20/18 04:18 04/20/18 04/21/18 04/22/18 05:59 05:59 05:59 Intake Total 1400 450 500 Balance 1400 450 500 PT 14.3 SEC (12.0-15.0) 04/18/18 20:10 INR 1.09 (0.83-1.16) 04/18/18 20:10 - Physical Exam Constitutional: no apparent distress, appears nourished, not in pain Eyes: PERRL, anicteric sclera, EOMI Ears, Nose, Mouth, Throat: moist mucous membranes, hearing normal, ears appear normal Cardiovascular: No JVD, No tachycardia, No edema Respiratory: no respiratory distress, no rales or rhonchi, reduced air movement Gastrointestinal: normoactive bowel sounds, No tenderness, No ascites Skin: warm, normal color, No mottled Musculoskeletal: no joint effusions, muscular tenderness, generalized weakness Neurologic: AAOx3 Psychiatric: interacting appropriately, not anxious, not encephalopathic, thought process linear ICD10 Worksheet Patient Problems: Problems Problem Status Onset CAD - Coronary arteriosclerosis Active History of placement of stent for coronary artery disease Active Expressive aphasia Acute Frequent falls Acute Leukocytosis Acute
--- NOTE | 2018-04-21 13:51 | ASMTCMCOM ---
CM Note CM Note Notes: Pt and amenable to SNF today, pt is accepted at [facility] choice [facility]. D/c plan of care: [facility] SNF when medically stable Date Signed: 04/21/2018 01:32 PM Electronically Signed By:CARMEN Negro
[2018-04-21] MEDS: MONTELUKAST SODIUM 10 MG TAB PO SCH (18:47)
[2018-04-21] MEDS: MELATONIN 3 MG TAB PO SCH (22:26)
[2018-04-21] MEDS: TEMAZEPAM 15 MG CAP PO PRN (22:29)
[2018-04-22] MEDS: LEVOTHYROXINE 88 MCG TAB PO SCH (06:14)
[2018-04-22] MEDS: RANOLAZINE 500 MG TAB.ER PO SCH (08:53)
[2018-04-22] MEDS: LOSARTAN POTASSIUM 50 MG TAB PO SCH (08:53)
[2018-04-22] MEDS: NEBIVOLOL HCL 5 MG TAB PO SCH (08:53)
[2018-04-22] MEDS: CHOLECALCIFEROL VIT D3 1,000 UNITS TAB PO SCH (08:53)
[2018-04-22] MEDS: DULoxetine 60 MG CAP PO SCH (08:53)
[2018-04-22] MEDS: FLUoxetine 20 MG CAP PO SCH (08:53)
--- NOTE | 2018-04-22 10:23 | PDIAF ---
- Diagnosis Diagnosis: aphasia Code Status: Full Code - Medication Management Discharge Medications: Medications to Continue on Transfer DULoxetine [Cymbalta 60 MG (*)] 60 mg PO DAILY 11/25/11 [Last Taken 04/18/18] FLUoxetine [Prozac 20 MG (*)] 20 mg PO DAILY 11/25/11 [Last Taken 04/18/18] Losartan Potassium 100 mg PO DAILY 11/25/11 [Last Taken 04/18/18] Furosemide [Lasix 20 MG (*)] 20 mg PO BID 04/01/18 [Last Taken 04/18/18 09:00] Albuterol [Proventil Inhaler HFA (*)] 1 - 2 puffs IH DAILY PRN 04/19/18 [Last Taken Unknown] Albuterol [Proventil Neb] 3 ml IH Q6HRS PRN 04/19/18 [Last Taken Unknown] Cholecalciferol Vit D3 [Vitamin D3 (*)] 1,000 units PO DAILY 04/19/18 [Last Taken Unknown] Diclofenac Sodium 1% [Voltaren Gel (*)] 1 margo TP DAILY PRN 04/19/18 [Last Taken 04/17/18] Fluticasone/Vilanterol [Breo Ellipta 100-25 Mcg INH] 1 each IH DAILY 04/19/18 [ Last Taken 04/18/18] Herbals/Supplements -Info Only 1 ea PO DAILY 04/19/18 [Last Taken Unknown] Levothyroxine [Synthroid 88 mcg (*)] 88 mcg PO DAILY06 04/19/18 [Last Taken 05/26] Montelukast Sodium [Singulair 10 mg (*)] 10 mg PO DAILY@1800 04/19/18 [Last Taken 04/18/18] Naproxen [Naprosyn] 250 mg PO DAILY PRN 04/19/18 [Last Taken Unknown] Nebivolol HCl [Bystolic] 20 mg PO DAILY 04/19/18 [Last Taken 04/18/18] Ranolazine [Ranexa] 500 mg PO BID 04/19/18 [Last Taken 04/18/18 09:00] hydrALAZINE [Apresoline 50 mg (*)] 50 mg PO BID 04/19/18 [Last Taken 04/18/18 09 :00] Acetaminophen [Tylenol 325mg (*)] 650 mg PO Q4HRS PRN tab 04/22/18 [Last Taken Unknown] Melatonin [Melatonin 3 MG (*)] 3 mg PO HS tab 04/22/18 [Last Taken Unknown] clonIDINE [Catapres (*)] 0.1 mg PO DAILY tab 04/22/18 [Last Taken Unknown] clonIDINE [Catapres (*)] 0.1 mg PO HS tab 04/22/18 [Last Taken Unknown] Discharge Medications: Refer to the Discharge Home Medication list for PRN reason. PICC Care - Routine: N/A - Orders Services needed: Registered Nurse, Physical Therapy, Occupational Therapy Diet Recommendation: no restrictions on diet - Follow Up Care Current Providers and Referrals: NONE *PRIMARY CARE P,. [Primary Care Provider] - As per Instructions
--- NOTE | 2018-04-22 10:31 | ASMTLACE ---
LACE Length of stay for Answers: 4-6 days current admission Acuity / Level of Answers: Yes Care: Did the patient have an inpatient admission? Comorbidities - select Answers: Coronary Artery Disease all that apply History of falls Opioid dependence / Chronic pain Other Notes: Pulm HTN # of Emergency department Answers: 1-2 visits in the last 6 months Score: 18 Date Signed: 04/22/2018 10:30 AM Electronically Signed By:CARMEN Negro
[2018-04-22 11:53] VITALS: BP 128/60
--- NOTE | 2018-04-22 12:38 | ASMTCMCOM ---
CM Note CM Note Notes: Pt medically stable for d/c to [facility]. Orders sent in [employer]. Pt wants to transport. RN November call report Date Signed: 04/22/2018 12:18 PM Electronically Signed By:CARMEN Negro
--- NOTE | 2018-04-22 13:26 | PDIAF ---
- Diagnosis Diagnosis: aphasia Code Status: Full Code - Medication Management Discharge Medications: Medications to Continue on Transfer DULoxetine [Cymbalta 60 MG (*)] 60 mg PO DAILY 11/25/11 [Last Taken 04/18/18] FLUoxetine [Prozac 20 MG (*)] 20 mg PO DAILY 11/25/11 [Last Taken 04/18/18] Furosemide [Lasix 20 MG (*)] 20 mg PO BID 04/01/18 [Last Taken 04/18/18 09:00] Albuterol [Proventil Inhaler HFA (*)] 1 - 2 puffs IH DAILY PRN 04/19/18 [Last Taken Unknown] Albuterol [Proventil Neb] 3 ml IH Q6HRS PRN 04/19/18 [Last Taken Unknown] Cholecalciferol Vit D3 [Vitamin D3 (*)] 1,000 units PO DAILY 04/19/18 [Last Taken Unknown] Diclofenac Sodium 1% [Voltaren Gel (*)] 1 margo TP DAILY PRN 04/19/18 [Last Taken 04/17/18] Fluticasone/Vilanterol [Breo Ellipta 100-25 Mcg INH] 1 each IH DAILY 04/19/18 [ Last Taken 04/18/18] Herbals/Supplements -Info Only 1 ea PO DAILY 04/19/18 [Last Taken Unknown] Levothyroxine [Synthroid 88 mcg (*)] 88 mcg PO DAILY06 04/19/18 [Last Taken 05/26] Montelukast Sodium [Singulair 10 mg (*)] 10 mg PO DAILY@1800 04/19/18 [Last Taken 04/18/18] Naproxen [Naprosyn] 250 mg PO DAILY PRN 04/19/18 [Last Taken Unknown] Ranolazine [Ranexa] 500 mg PO BID 04/19/18 [Last Taken 04/18/18 09:00] hydrALAZINE [Apresoline 50 mg (*)] 50 mg PO BID 04/19/18 [Last Taken 04/18/18 09 :00] Acetaminophen [Tylenol 325mg (*)] 650 mg PO Q4HRS PRN tab 04/22/18 [Last Taken Unknown] Losartan Potassium [Cozaar 50 mg (*)] 50 mg PO DAILY #30 tab 04/22/18 [Last Taken Unknown] Melatonin [Melatonin 3 MG (*)] 3 mg PO HS tab 04/22/18 [Last Taken Unknown] Nebivolol HCl [Bystolic 5 mg (*)] 5 mg PO DAILY #30 tab 04/22/18 [Last Taken Unknown] clonIDINE [Catapres (*)] 0.1 mg PO DAILY tab 04/22/18 [Last Taken Unknown] clonIDINE [Catapres (*)] 0.1 mg PO HS tab 04/22/18 [Last Taken Unknown] Discharge Medications: Refer to the Discharge Home Medication list for PRN reason. PICC Care - Routine: N/A - Orders Services needed: Registered Nurse, Physical Therapy, Occupational Therapy Diet Recommendation: no restrictions on diet - Follow Up Care Current Providers and Referrals: NONE *PRIMARY CARE P,. [Primary Care Provider] - As per Instructions
--- NOTE | 2018-04-22 13:58 | GDS ---
DISCHARGE DIAGNOSES: 1. Word-finding difficulty. 2. Leukocytosis. 3. Metabolic encephalopathy. 4. Urinary tract infection. 5. Chronic kidney disease stage 3. 6. Mild hyponatremia. 7. Hypertension. 8. Falls. 9. Insomnia. STUDIES AND PROCEDURES DONE: 1. Head CT. 2. MRI of the brain. 3. Carotid Doppler. 4. Echocardiogram. CONSULTATIONS: Neurology. PHYSICAL EXAM: GENERAL: The patient is alert. VITAL SIGNS: Afebrile at 36.4, pulse 63, respirator y rate is 20, blood pressure is 128/60. She is saturating 98% on 3 L. I have seen and evaluated the patient on the day of discharge. HOSPITAL COURSE: The patient is an 82-year-old female who presented to the emergency room with compl aints of word-finding difficulty. She was evaluated and diagnosed with: 1. Toxic metabolic encephalopathy. This is multifactorial given the patient's alcohol use, medicati ons, hyponatremia and urinary tract infection. This has resolved. She did receive a consultation fr om Neurology during this hospitalization. MRI of the brain was benign. Carotid ultrasounds were flores luated with no flow-limiting stenosis identified and no signs of CVA. 2. Leukocytosis in the setting of acute infectious process. This has resolved. 3. Urinary tract infection. Urine culture demonstrates a pansensitive E coli. This was treated wit h Rocephin during this hospitalization with no further evaluation warranted. 4. Chronic kidney disease. The patient is at her baseline. 5. Mild hyponatremia. The patient's diuretic was held during this hospitalization. She was hypovol emic at the time of admission. Her hyponatremia has improved. 6. Hypertension. The patient's blood pressure medications have been adjusted during this hospital c ourse secondary to hypotension. Her clonidine has been decreased by 0.1 mg at bedtime as well as her Bystolic decreased to 5 mg, and her Cozaar is down to 50 mg. She is tolerating this dosage and will continue this at the time of disposition. 7. Falls. This is likely related to the patient's alcohol consumption with trazodone. Her trazodon e has been discontinued. [facility] and fish gement. 8. Insomnia. She has been treated with melatonin during this hospitalization, and her trazodone has been discontinued. DISPOSITION: The patient will be discharged to [facility] facility for further evaluation and m anagement. There are no pending studies. DISCHARGE MEDICATIONS: Please refer to EMR form. Again, the patient's home blood pressure medicatio ns have been adjusted at the time of disposition. Followup will be with her primary care physician. /[id number]/MODL
--- NOTE | 2018-04-22 14:37 | ASDISCHSUM ---
Discharge Information Plan Status:SNF Medically Cleared to Leave: Discharge Date:04/22/2018 01:15 PM D/C Disposition:Alf Facility ADT D/C Disposition:Alf Facility Projected Discharge Date:04/22/2018 11:00 AM Transportation at D/C:Family Discharge Delay Reason: Follow-Up Date:04/22/2018 11:00 AM Discharge Slot: Final Diagnosis: Placement Information Referral Type:*Custodial/SNF Referral ID:[id number] Provider Name:[facility] Address 1:[address] Address 2: City:[place] Selection Factors: State:[place] Patient Contact Information Contact Name:AG Relationship: Address:[address] Work Phone: [facility] Alternate Phone: State/Zip Code:[place] [address] Email: Financial Information Financial Class:Medicare Primary Plan Desc:MEDICARE INPATIENT Primary Plan Number:[id number] Secondary Plan Desc:[employer] [facility] Secondary Plan Number:[id number] Assessment Information LACE LACE Length of stay for Answers: 4-6 days current admission Acuity / Level of Answers: Yes Care: Did the patient have an inpatient admission? Comorbidities - select Answers: Coronary Artery Disease all that apply History of falls Opioid dependence / Chronic pain Other Notes: Pulm HTN # of Emergency department Answers: 1-2 visits in the last 6 months Score: 18 Date Signed: 04/22/2018 10:30 AM Electronically Signed By:CARMEN Negro [facility] Initial CM Assessment Living Arrangements What is your living Answers: With Spouse arrangement? Who do you live with? Type Of Residence What kind of residence do Answers: House you live in? Discharge Plan Comments Coordination Status Comments Notes: Patient is an 82yo female who was admitted for word finding difficulty, UTI, falls due to deconditioning and ETOH use, CKD, stage III, and hyponatremia. BENEFITS REPRESENTATIVE has been ordered. D/C plan TBD. CM will follow. Date Signed: 04/19/2018 11:10 AM Electronically Signed By:Nahomi Lloyd LCSW [facility] CM Progress Note CM Note CM Note Notes: Spoke w/pt and family re; dc poc. Pt admitted for UTI and confusion. She lives at home with her and uses O2 at baseline. PT recommends SNF but pt declines, she is however agreeable to homecare. List provided to family and they will let CM know choice. DC Plan: Home Care Date Signed: 04/20/2018 02:34 PM Electronically Signed By:Ирина Aguero RN [facility] CM Progress Note CM Note CM Note Notes: Pt and amenable to SNF today, pt is accepted at [facility]. D/c plan of care: [facility] when medically stable Date Signed: 04/21/2018 01:32 PM Electronically Signed By:ACRMEN Negro [facility] CM Progress Note CM Note CM Note Notes: Pt medically stable for d/c to [facility]. Orders sent in [employer]. Pt wants to transport. RN November report Date Signed: 04/22/2018 12:18 PM Electronically Signed By:CARMEN Negro Intervention Information Intervention Type:*IM-Signed Date of Service:04/22/2018 11:30 AM Patient Type:Inpatient Staff Member:Carol Mccormick Hours: Discipline: Severity: Comment:
== END 2018-04-22 13:15 | DRG 689 ==
LOC: F3N 23:46 → OBSVTOIN 04-19 14:39
PROVIDERS: ADMIT Internal Medicine; ATTEND Internal Medicine
DX: N39.0 Urinary tract infection, site not specified (principal); B96.20 Unspecified Escherichia coli [E. coli] as the cause of diseases classified elsewhere; G93.41 Metabolic encephalopathy; E87.1 Hypo-osmolality and hyponatremia; R47.01 Aphasia; D72.829 Elevated white blood cell count, unspecified; N18.3 Chronic kidney disease, stage 3 (moderate); G47.00 Insomnia, unspecified; I27.20 Pulmonary hypertension, unspecified; I25.10 Atherosclerotic heart disease of native coronary artery without angina pectoris; Z72.89 Other problems related to lifestyle; Z95.5 Presence of coronary angioplasty implant and graft; Z91.81 History of falling
CPT/HCPCS: 84484-PO; 92507-GN; 92523-GN; 96365; 97110-GP; 97116-GP; 97161-GP; 97165-GO; 97530-GO; 97535-GO; G0378; G0480; G8979-GP-CJ; G8980-GP-CI; G8987-GO-CI; G8988-GO-CI; G9168-GN-CJ; G9169-GN-CI; J0696

== ENCOUNTER 2018-07-19 11:19 | Emergency (ER) | payer BC, OTHER ==
[2018-07-19] MEDS ORDERED: IBUPROFEN 600 MG TAB PO ONE (11:46)
--- NOTE | 2018-07-19 11:48 | EDPHY ---
H & P Stated Complaint: Left knee pain after waking up 3 days ago, can bear weight but w pain Time Seen by Provider: 07/19/18 11:43 HPI/ROS: CHIEF COMPLAINT: Left knee pain HISTORY OF PRESENT ILLNESS: Patient is a 83-year-old female with a history of arthritis as well as coronary artery disease and pulmonary hypertension. She complains of left knee pain for 3 days. She can bear weight and ambulate but with significant pain. She has had her right knee replaced. She does not remember any specific injury but thinks she might have twisted it. It is slightly swollen. No erythema or warmth. No rash. No pain in her foot or ankle or hip. Normal range of motion of hip and ankle. No low back pain. Severity: Moderate Modifying factors: Worsened by weight-bearing no pain with passive range of motion. REVIEW OF SYSTEMS: Constitutional: denies: chills, fever, recent illness, recent injury EENTM: denies: blurred vision, double vision, nose congestion Respiratory: denies: cough, shortness of breath Cardiac: denies: chest pain, irregular heart rate, lightheadedness, palpitations Gastrointestinal/Abdominal: denies: abdominal pain, diarrhea, nausea, vomiting, blood streaked stools Genitourinary: denies: dysuria, frequency, hematuria, pain Musculoskeletal: See HPI Skin: denies: lesions, rash, jaundice, bruising Neurological: denies: headache, numbness, paresthesia, tingling, dizziness, weakness Hematologic/Lymphatic: denies: blood clots, easy bleeding, easy bruising Immunologic/allergic: denies: HIV/AIDS, transplant 10 systems reviewed and negative except as noted EXAM: GENERAL: Well-appearing, well-nourished and in no acute distress. HEAD: Atraumatic, normocephalic. EYES: Pupils equal round and reactive to light, extraocular movements intact, sclera anicteric, conjunctiva are normal. ENT: TMs normal, nares patent, oropharynx clear without exudates. Moist mucous membranes. NECK: Normal range of motion, supple without lymphadenopathy or JVD. LUNGS: Breath sounds clear to auscultation bilaterally and equal. No wheezes rales or rhonchi. HEART: Regular rate and rhythm without murmurs, rubs or gallops. ABDOMEN: Soft, nontender, normoactive bowel sounds. No guarding, no rebound. No masses appreciated. BACK: No CVA tenderness, no spinal tenderness, step-offs or deformities EXTREMITIES: Left knee with minimal swelling, normal passive range of motion. Pain with axial loading. No obvious deformity. No pain with range of motion of ankle or hip. NEUROLOGICAL: Cranial nerves II through XII grossly intact. Normal speech, normal gait. 5/5 strength, normal movement in all extremities, normal sensation , normal reflexes PSYCH: Normal mood, normal affect. SKIN: Warm, dry, normal turgor, no visible rashes or lesions. Source: Patient, Family Exam Limitations: No limitations - Personal History Current Tetanus Diphtheria and Acellular Pertussis (TDAP): Yes Tetanus Vaccine Date: 2004 - Medical/Surgical History Hx Asthma: No Hx Chronic Respiratory Disease: Yes Hx Diabetes: No Hx Cardiac Disease: Yes Hx Renal Disease: No Hx Cirrhosis: No Hx Alcoholism: No Hx HIV/AIDS: No Hx Splenectomy or Spleen Trauma: No Other PMH: ARTEREOSCLEROSIS,STENTSx3 2004, PULMONARY HTN,ULCERATIVE COLITIS, HTN. OR: T&A,HYST,THYROID,DISECTOMY,TOTAL RT KNEE - Family History Significant Family History: No pertinent family hx - Social History Smoking Status: Never smoked Alcohol Use: Sober Constitutional: Initial Vital Signs Temperature (C) 36.3 C 07/19/18 11:33 Heart Rate 66 07/19/18 11:33 Respiratory Rate 18 07/19/18 11:33 Blood Pressure 158/73 H 07/19/18 11:33 O2 Sat (%) 88 L 07/19/18 11:33 O2 Delivery Mode Nasal Cannula O2 (L/minute) 3 Allergies/Adverse Reactions: tapentadol HCl [From Nucynta] Allergy (Intermediate, Verified 07/19/18 11:23) hallucinations dicloxacillin Allergy (Unknown, Verified 07/19/18 11:23) Unknown nitrofurantoin macrocrystalline [From Macrodantin] Allergy (Unknown, Verified 11:23) Penicillins Allergy (Unknown, Verified 07/19/18 11:23) Sulfa (Sulfonamide Antibiotics) Allergy (Unknown, Verified 07/19/18 11:23) tetracycline [Tetracycline] Allergy (Unknown, Verified 07/19/18 11:23) abi inhibitors Allergy (Unknown, Uncoded 07/19/18 11:23) nitrofurantoin macrocrystalline Allergy (Unknown, Uncoded 07/19/18 11:23) sinobac Allergy (Unknown, Uncoded 07/19/18 11:23) tapentadol HCl Allergy (Unknown, Uncoded 07/19/18 11:23) hallucinations Home Medications: Medication Instructions Recorded DULoxetine [Cymbalta 60 MG (*)] 60 mg PO DAILY 11/25/11 FLUoxetine [Prozac 20 MG (*)] 20 mg PO DAILY 11/25/11 Furosemide [Lasix 20 MG (*)] 20 mg PO BID 04/01/18 Albuterol [Proventil Inhaler HFA 1 - 2 puffs IH DAILY PRN 04/19/18 (*)] Albuterol [Proventil Neb] 3 ml IH Q6HRS PRN 04/19/18 Cholecalciferol Vit D3 [Vitamin D3 1,000 units PO DAILY 04/19/18 (*)] Diclofenac Sodium 1% [Voltaren Gel 1 margo TP DAILY PRN 04/19/18 (*)] Fluticasone/Vilanterol [Breo 1 each IH DAILY 04/19/18 Ellipta 100-25 Mcg INH] Herbals/Supplements -Info Only 1 ea PO DAILY 04/19/18 Levothyroxine [Synthroid 88 mcg 88 mcg PO DAILY06 04/19/18 (*)] Montelukast Sodium [Singulair 10 10 mg PO DAILY@1800 04/19/18 mg (*)] Naproxen [Naprosyn] 250 mg PO DAILY PRN 04/19/18 Ranolazine [Ranexa] 500 mg PO BID 04/19/18 hydrALAZINE [Apresoline 50 mg (*)] 50 mg PO BID 04/19/18 Acetaminophen [Tylenol 325mg (*)] 650 mg PO Q4HRS PRN tab 04/22/18 Losartan Potassium [Cozaar 50 mg 50 mg PO DAILY #30 tab 04/22/18 (*)] Melatonin [Melatonin 3 MG (*)] 3 mg PO HS tab 04/22/18 Nebivolol HCl [Bystolic 5 mg (*)] 5 mg PO DAILY #30 tab 04/22/18 clonIDINE [Catapres (*)] 0.1 mg PO DAILY tab 04/22/18 clonIDINE [Catapres (*)] 0.1 mg PO HS tab 04/22/18 Medical Decision Making - Diagnostics Imaging Results: Imaging Impressions Knee X-Ray 07/19/18 11:44 Impression: 1. Osteoarthritic change with evidence of knee joint instability. 2. Knee joint effusion, potentially posttraumatic or related to chronic arthritis 3. Tiny bone chip of undetermined chronicity, associated with the medial joint line. Imaging: Discussed imaging studies w/ call center agent Radiologist Procedures: Procedure: Splint placement. A Velcro straight leg splint was applied. After application of the splint I returned and re-examined the patient. The splint was adequately immobilizing the joint and distal to the splint the patient's circulation and sensation was intact. ED Course/Re-evaluation: 12 we discussed the x-ray results. We will place the patient in a straight leg brace and have her follow up with her orthopedist Dr. Canales. I recommended if her symptoms persist to consider MRI and possibly surgical repair. She and her understand agree with this plan. We also discussed anti- inflammatories and ice. Differential Diagnosis: Partial list of the Differential diagnosis considered include but were not limited to; contusion, ligamentous injury, meniscus injury and although unlikely based on the history and physical exam, I also considered fracture, infection. I discussed these differential diagnoses and the plan with the patient as well as the usual and expected course. The patient understands that the diagnosis is provisional and that in medicine we are not always correct and that further workup is often warranted. Usual and customary warnings were given. All of the patient's questions were answered. The patient was instructed to return to the emergency department should the symptoms at all worsen or return, otherwise to followup with the physician as we discussed. - Data Points Medications Given: Discontinued Medications Ibuprofen (Motrin) 600 mg PO EDNOW ONE Stop: 07/19/18 11:47 Last Admin: 07/19/18 11:51 Dose: 600 mg Departure - Departure Disposition: Home, Routine, Self-Care Clinical Impression: Internal derangement of left knee Condition: Fair Instructions: Knee Pain (ED) Referrals: Gisel Jennings MD [Primary Care Provider] - As per Instructions Josiah Canales MD [Medical Doctor] - As per Instructions
[2018-07-19 12:37] VITALS: BP 131/74
== END 2018-07-19 12:37 | disposition home or self-care (01) ==
LOC: CED 11:19
DX: M17.12 Unilateral primary osteoarthritis, left knee (principal); M11.262 Other chondrocalcinosis, left knee; M25.462 Effusion, left knee; I25.10 Atherosclerotic heart disease of native coronary artery without angina pectoris; I27.20 Pulmonary hypertension, unspecified; K51.90 Ulcerative colitis, unspecified, without complications; Z96.651 Presence of right artificial knee joint; Z95.5 Presence of coronary angioplasty implant and graft
CPT/HCPCS: 73562-PO

== ENCOUNTER → 2018-12-20 | Outpatient (CLI) | payer BC | LOC: FIMAGING 11:18 | PROVIDERS: ATTEND Physician Assistant | DX: M81.0 Age-related osteoporosis without current pathological fracture (principal); M48.061 Spinal stenosis, lumbar region without neurogenic claudication ==

== ENCOUNTER → 2018-12-28 | Outpatient (CLI) | payer BC ==
[~2018-12-28] MED LIST: IOPAMIDOL (ISOVUE-300) 100 ML BTL ONE
== END ==
LOC: FIMAGING 14:02
PROVIDERS: ATTEND Internal Medicine
DX: N28.1 Cyst of kidney, acquired (principal); M51.36 Other intervertebral disc degeneration, lumbar region; M41.86 Other forms of scoliosis, lumbar region
CPT/HCPCS: 82565-PO; Q9967